=== PATIENT | female | born 1985 | race Caucasian/White ===

== ENCOUNTER 2017-11-11 19:13 | Emergency (ER) | payer BC ==
[2017-11-11 19:35] VITALS: BP 112/79
--- NOTE | 2017-11-11 19:44 | UC ---
FLU HPI - HPI Summary HPI Summary: Pt presents with body aches, fever, and fatigue since earlier today. She tells me that she is currently on amoxicillin for a sinus infection and is on day 7. Earlier today she developed body aches, fever, and fatigue. Her sinus symptoms are improved. Her fever is controlled at 100F with naproxen. Denies cough, SOB, chest pain, abdominal pain, n/v/d/c. - History of Current Complaint Chief Complaint: UCRespiratory Stated Complaint: SINUS PAIN,FEVER,WORK NOTE Hx Obtained From: Patient Hx Last Menstrual Period: 2 WEEKS AGO Onset/Duration: Sudden Onset Severity Currently: Moderate Severity Initially: Moderate Pain Intensity: 7 Pain Scale Used: 0-10 Numeric - Allergy/Home Medications Allergies/Adverse Reactions: Allergies Allergy/AdvReac Type Severity Reaction Status Date / Time No Known Allergies Allergy Verified 11/11/17 19:34 Home Medications: Home Medications Acetaminophen TAB* [Tylenol TAB*] 650 mg PO PRN 11/11/17 [History] Amoxicillin PO (*) [Amoxicillin 875 MG (*)] 1 tab PO BID 11/11/17 [History Confirmed 11/11/17] Aspirin/Acetaminophen/Caffeine [Excedrin Extra Strength Caplet] 1 each PO PRN [History] Cetirizine* [ZyrTEC 10 MG TAB*] 10 mg PO DAILY 11/11/17 [History Confirmed 11/11] Naproxen Sodium [Aleve] 440 mg PO ONCE PRN 11/11/17 [History Confirmed 11/11/17] PMH/Surg Hx/FS Hx/Imm Hx - Additional Past Medical History Additional PMH: Allergies Migraines Previously Healthy: Yes - Surgical History Surgical History: Yes Surgery Procedure, Year, and Place: WISDOM TEETH REMOVED. Hip Surgery 09/2014 - Family History Known Family History: Positive: Unknown - Social History Occupation: Employed Full-time Lives: With Family Alcohol Use: Occasionally Substance Use Type: None Smoking Status (MU): Never Smoked Tobacco Review of Systems Constitutional: Fever, Fatigue, Other - Body aches Skin: Negative Eyes: Negative ENT: Negative Respiratory: Negative Cardiovascular: Negative Gastrointestinal: Negative Neurological: Negative Psychological: Negative All Other Systems Reviewed And Are Negative: Yes Physical Exam - Summary Physical Exam Summary: GENERAL: Mildly ill appearing. NAD. WDWN. No pain distress. SKIN: No rashes, sores, ulcers, masses, lesions. HEENT: Head: AT/NC Eyes: EOM intact. Conjunctiva clear without inflammation or discharge. Ears: Hearing grossly normal. TMs intact, no bulging, erythema, or edema. Nose: Nasal mucosa pink and moist. NTTP maxillary and frontal sinus. Throat: Posterior oropharynx without exudates, erythema, or tonsillar enlargement. Uvula midline. NECK: Supple. Nontender. No lymphadenopathy. CHEST: CTAB. No r/r/w. No accessory muscle use. Breathing comfortably and in no distress. CV: RRR. Without m/r/g. Pulses intact. Brisk cap refill. NEURO: Alert. CN II-XII grossly intact. PSYCH: Age appropriate behavior. Triage Information Reviewed: Yes Vital Signs: Initial Vital Signs Temp 99.6 F 11/11/17 19:31 Pulse 68 11/11/17 19:31 Resp 16 11/11/17 19:31 BP 112/79 11/11/17 19:31 Pulse Ox 99 11/11/17 19:31 Flu Course/Dx - Course Course Of Treatment: POC flu swab negative. Suspect viral illness. Advised rest , fluids, and continue with ibuprofen for discomfort/fevers. - Differential Dx/Diagnosis Provider Diagnoses: Viral syndrome Discharge - Discharge Plan Condition: Stable Disposition: HOME Patient Education Materials: Viral Syndrome (ED) Forms: *Work Release Referrals: Sunita Boland MD [Medical Doctor] - Additional Instructions: If you develop an increasing fever, shortness of breath, chest pain, new or worsening symptoms - please call your PCP or go to the ED.
== END 2017-11-11 20:45 | disposition home or self-care (01) ==
LOC: UCEAST 19:13
DX: B34.9 Viral infection, unspecified (principal); Z79.2 Long term (current) use of antibiotics
CPT/HCPCS: 87502; 99211; G0463